=== PATIENT | male | born 1960 | race Caucasian/White ===

== ENCOUNTER 2018-04-04 10:34 | Day surgery (SDC) | payer BC ==
[~2018-04-04 10:34] MED LIST: ACETAMINOPHEN 325 MG TAB PO; PHENYLEPHRINE HCL 10 % OPHTH. SOL 5ML OS; PROPARACAINE 0.5% OPHTH SOL 15ML OS
[2018-04-04] MEDS: LIDOCAINE 3.5 % 1ML OPHTH TOPICAL GEL OU (11:00)
[2018-04-04] MEDS: OFLOXACIN 0.3 % (OCUFLOX) OPTH SOL 5ML OS (11:05)
[2018-04-04] MEDS: TROPICAMIDE 1% OPHTH SOLN 2ML OS (11:06)
[2018-04-04] MEDS: PHENYLEPHRINE 2.5% OPHTH SOL 2ML OS (11:07)
[2018-04-04] MEDS: CYCLOPENTOLATE 2% OPHTH SOLN 2ML BTL OS (11:07)
[2018-04-04] MEDS: HEALON DUET (HEALON 10MG/ML 0.55ML & HEALON ENDOCOAT 30MG/ML 0.85ML) As Ordered (12:14)
[2018-04-04] MEDS: BALANCED SALT IRRIGATION SOLUTION 500ML BAG (FOR OR EYE MACHINE) As Ordered (12:14)
[2018-04-04] MEDS: POVIDONE-IODINE 5% OPHTH PREP SOL 30ML As Ordered (12:14)
[2018-04-04] MEDS: LIDOCAINE 1% SDV 5 ML VIAL As Ordered (12:14)
[2018-04-04] MEDS ORDERED: MIDAZOLAM INJ 2 MG/2 ML VIAL (J2250) As Ordered (12:15)
[2018-04-04] MEDS ORDERED: fentaNYL 100 MCG/2 ML INJECTION (J3010) As Ordered (12:15)
[2018-04-04] MEDS ORDERED: TRIMETHOBENZAMIDE 300 MG CAP PO (12:45)
[2018-04-04] MEDS: AcetaZOLAMIDE 500 MG ER CAP PO (13:05)
[2018-04-04] MEDS: KETOROLAC 0.5% OPHTH SOLN OS (13:05)
== END 2018-04-04 13:15 | disposition home or self-care (01) ==
LOC: M SDC 10:34
DX: H25.12 Age-related nuclear cataract, left eye (principal); Z87.891 Personal history of nicotine dependence
CPT/HCPCS: 66984

== ENCOUNTER 2018-04-11 09:06 | Day surgery (SDC) | payer BC ==
[~2018-04-11 09:06] MED LIST changes: +PHENYLEPHRINE HCL 10 % OPHTH. SOL 5ML OD; -PHENYLEPHRINE HCL 10 % OPHTH. SOL 5ML OS; +PROPARACAINE 0.5% OPHTH SOL 15ML OD; -PROPARACAINE 0.5% OPHTH SOL 15ML OS
[2018-04-11] MEDS: PHENYLEPHRINE 2.5% OPHTH SOL 2ML OD (10:08)
[2018-04-11] MEDS: CYCLOPENTOLATE 2% OPHTH SOLN 2ML BTL OD (10:08)
[2018-04-11] MEDS: LIDOCAINE 3.5 % 1ML OPHTH TOPICAL GEL OU (10:08)
[2018-04-11] MEDS: OFLOXACIN 0.3 % (OCUFLOX) OPTH SOL 5ML OD (10:08)
[2018-04-11] MEDS: TROPICAMIDE 1% OPHTH SOLN 2ML OD (10:08)
[2018-04-11] MEDS: POVIDONE-IODINE 5% OPHTH PREP SOL 30ML As Ordered (11:22)
[2018-04-11] MEDS: HEALON DUET (HEALON 10MG/ML 0.55ML & HEALON ENDOCOAT 30MG/ML 0.85ML) As Ordered (11:22)
[2018-04-11] MEDS: LIDOCAINE 1% SDV 5 ML VIAL As Ordered (11:23)
[2018-04-11] MEDS: BALANCED SALT IRRIGATION SOLUTION 500ML BAG (FOR OR EYE MACHINE) As Ordered (11:23)
[2018-04-11] MEDS: CEFUROXIME 1MG/0.1ML INTRACAMERAL INJ As Ordered (11:23)
[2018-04-11] MEDS ORDERED: fentaNYL 100 MCG/2 ML INJECTION (J3010) As Ordered (11:42)
[2018-04-11] MEDS ORDERED: MIDAZOLAM INJ 2 MG/2 ML VIAL (J2250) As Ordered (11:42)
[2018-04-11] MEDS ORDERED: AcetaZOLAMIDE 500 MG ER CAP As Ordered (11:42)
[2018-04-11] MEDS: KETOROLAC 0.5% OPHTH SOLN OD (11:52)
[2018-04-11] MEDS: AcetaZOLAMIDE 500 MG ER CAP PO (11:52)
[2018-04-11] MEDS ORDERED: TRIMETHOBENZAMIDE 300 MG CAP PO (12:00)
== END 2018-04-11 12:10 | disposition home or self-care (01) ==
LOC: M SDC 09:06
DX: H25.11 Age-related nuclear cataract, right eye (principal); J30.9 Allergic rhinitis, unspecified; Z87.891 Personal history of nicotine dependence
CPT/HCPCS: 66984